=== PATIENT | female | born 1950 | race Caucasian/White ===

== ENCOUNTER → 2016-11-30 | Outpatient (CLI) | payer BC, MEDICARE | LOC: WI 13:03 | PROVIDERS: ATTEND Physician Assistant | DX: Z12.31 Encounter for screening mammogram for malignant neoplasm of breast (principal) | CPT/HCPCS: 77067; G0202 ==

== ENCOUNTER → 2017-05-01 | Outpatient (CLI) | payer BC, MEDICARE ==
--- NOTE | 2017-05-01 15:33 | RADIOLOGY REPORT (SQ) ---
EXAM DESCRIPTION: VENOUS UNILATERAL LOWER COMPLETED DATE/TIME: 05/01/2017 3:23 pm REASON FOR STUDY: LLE EDEMA R60.0 LOCALIZED EDEMA COMPARISON: None. TECHNIQUE: Dynamic and static edmondson scale and color images acquired of the left leg venous system. Se lected spectral images acquired with additional compression and augmentation maneuvers. The contralat eral common femoral vein and saphenofemoral junction were also imaged. Images stored on PACS. LIMITATIONS: None. FINDINGS: COMMON FEMORAL: Normal phasicity, compression and augmentation. No visualized echogenic ma terial on edmondson scale. No defects on color images. FEMORAL: Normal compression and augmentation. No visualized echogenic material on edmondson scale. No defe cts on color images. POPLITEAL: Normal compression, augmentation. No visualized echogenic material on edmondson scale. No defec ts on color images. CALF VESSELS: Normal compression, augmentation. No visualized echogenic material on edmondson scale. No de fects on color images. GSV and SSV: Normal compression, augmentation. No visualized echogenic material on edmondson scale. No def ects on color images. ANY DEEP VENOUS INSUFFICIENCY: Not evaluated. ANY EVIDENCE OF POPLITEAL CYST: No. OTHER: No other significant finding. CONTRALATERAL COMMON FEMORAL VEIN AND SAPHENOFEMORAL JUNCTION: Normal phasicity, compression and augmentation. No visualized echogenic material on edmondson scale. No de fects on color images. IMPRESSION: NO EVIDENCE OF DVT OR SVT IN THE LEFT LEG. TECHNICAL DOCUMENTATION: JOB ID: [id number] [employer]- All Rights Reserved
--- NOTE | 2017-05-01 16:07 | RADIOLOGY REPORT (SQ) ---
EXAM DESCRIPTION: KNEE LEFT 3 VIEWS COMPLETED DATE/TIME: 05/01/2017 3:44 pm REASON FOR STUDY: ACUTE PAIN OF LEFT KNEE R60.0 LOCALIZED EDEMA COMPARISON: None. NUMBER OF VIEWS: Three views. TECHNIQUE: AP, lateral, both oblique, and sunrise patella radiographic images acquired of the left k nee. LIMITATIONS: None. FINDINGS: MINERALIZATION: Normal. BONES: No acute fracture or dislocation. No worrisome bone lesions. JOINT: No effusion. SOFT TISSUES: No soft tissue swelling. No radio-opaque foreign body. OTHER: No other significant finding. IMPRESSION: NEGATIVE STUDY OF THE LEFT KNEE. NO RADIOGRAPHIC EVIDENCE OF ACUTE INJURY. TECHNICAL DOCUMENTATION: JOB ID: [id number] [employer]- All Rights Reserved
== END ==
LOC: SP 14:52
PROVIDERS: ATTEND Physician Assistant
DX: M25.562 Pain in left knee (principal); R60.0 Localized edema
CPT/HCPCS: 93971

== ENCOUNTER → 2017-12-14 | Outpatient (CLI) | payer MEDICARE ==
--- NOTE | 2017-12-14 11:27 | WOMENS IMAGING REPORT ---
EXAM DESCRIPTION: 3D SCREENING MAMMO BILAT COMPLETED DATE/TIME: 12/14/2017 10:43 am REASON FOR STUDY: ROUTINE SCREENING;Z12.31 Z12.31 ENCNTR SCREEN MAMMOGRAM FOR MALIGNANT NEOPLASM OF [place]LAN COMPARISON: 11/30/2016, 04/16/2015, and 02/11/2014. TECHNIQUE: Standard craniocaudal and mediolateral oblique views of each breast recorded using digita l acquisition and breast tomosynthesis. LIMITATIONS: None. FINDINGS: Findings present which are benign by mammographic criteria. No suspicious masses, calcifi cations or architectural distortion. Pertinent benign findings: Stable small nodules and calcifications. Read with the assistance of CAD. .[facility] - R2 Cenova Version 1.3 .[facility] - R2 Cenova Version 1.3 .[facility] - R2 Cenova Version 2.4 .[facility] - R2 Cenova Version 2.4 .[facility] - R2 [employer] Operations Analyst Version 9.2 Benign mammographic findings may include one or more of the following: Smooth masses, popcorn/rim/co arse calcifications, asymmetries, post-procedure changes, and lesions with long-standing stability. IMPRESSION: BENIGN MAMMOGRAPHIC FINDINGS. BIRADS 2 BREAST DENSITY: c. The breasts are heterogeneously dense, which may obscure small masses. BIRAD: 2 BENIGN FINDING(S) RECOMMENDATION: RECOMMENDATION: ROUTINE SCREENING COMMENT: The patient has been notified of the results by letter per SA requirements. Additional no tification policies are in place for contacting patient with suspicious or incomplete findings. Quality ID #225: The [employer] recommends an annual screening mammogram for women aged 40 years or over. This facility utilizes a reminder system to ensure that all patients receive reminder letters, and/or direct phone calls for appointments. This includes reminders for routine scr eening mammograms, diagnostic mammograms, or other Breast Imaging Interventions when appropriate. Th is patient will be placed in the appropriate reminder system. The [employer] (ACR) has developed recommendations for screening MRI of the breast s in certain patient populations, to be used in conjunction with mammography. Breast MRI surveillanc e may be appropriate for women with more than 20% lifetime risk of developing breast cancer as deter mined by genetic testing, significant family history of the disease, or history of mantle radiation f or Hodgkins Disease. ACR Practice Guidelines 2008. DBT Technology DBT is a type of tomographic mammography. With conventional mammography, overlapping breast tissue ma y make lesions difficult to detect, even with good compression. DBT uses an x-ray tube that rotates a round the breast, taking images at different angles. These images are then combined to create thin sl ices of the breast that the radiologist can view as a 3D reconstruction. The Inotrem unit can perform full-field digital mammograms (2D imaging); or DBT (3D imaging); or both, in a combination mode that quickly performs both the mammogram and the tomosynthesis scan while the breast is still compressed. PQRS 6045F: Fluoroscopic imaging is not utilized for breast tomosynthesis. TECHNICAL DOCUMENTATION: FINDING NUMBER: (1) ASSESSMENT: (1) JOB ID: [id number] [employer]- All Rights Reserved Reading location - IP/workstation name: [email or web address]
== END ==
LOC: WI 10:31
PROVIDERS: ATTEND Physician Assistant
DX: Z12.31 Encounter for screening mammogram for malignant neoplasm of breast (principal)
CPT/HCPCS: 77063; 77067

== ENCOUNTER 2018-01-08 08:54 | Day surgery (SDC) | payer MEDICARE ==
[~2018-01-08 08:54] MED LIST: PROPOFOL INJ 200 MG/20 ML VIAL IV ONE
[2018-01-08 10:40] VITALS: BP 134/60
--- NOTE | 2018-01-08 14:06 | Operative Report ---
Operative Report DATE OF SURGERY: 01/08/18 Operative Report: The risks, benefits and alternatives of the procedure including risks of bleeding, perforation requiring surgery I explained to the patient in detail and informed consent was obtained. Patient was taken back to the endoscopy suite and placed in the left, lateral decubital position. Timeout was called. Propofol medications administered. A rectal examination was done which did not reveal any masses, tenderness or fissures. An Olympus endoscope was inserted into the patient's rectum. The scope was then carefully advanced all the way to the cecum. The cecum was identified by the usual anatomical landmarks including the ileocecal valve as well as the appendiceal office. Photodocumentation was obtained. The scope was then sequentially pulled back via the various segments of the colon including the descending colon, hepatic flexure, transverse colon, splenic flexure, descending colon and finally into the rectosigmoid portions of the colon. Retroflexion maneuver was performed. PREOPERATIVE DIAGNOSIS: Personal history of polyps. POSTOPERATIVE DIAGNOSIS: Mild right-sided colon inflammation status post biopsy. Internal hemorrhoids. Diverticulosis OPERATION: Colonoscopy with biopsy SURGEON: DAYAMI LANG ANESTHESIA: LMAC TISSUE REMOVED OR ALTERED: As noted above. COMPLICATIONS: None. ESTIMATED BLOOD LOSS: None. INTRAOPERATIVE FINDINGS: As noted above. PROCEDURE: Patient tolerated procedure well. No immediate postprocedure complications are noted. Patient discharged in good condition. Discharge date 01/08/2018. Discharge diet: Regular. Discharge activity: Regular. 2-3 week follow-up to discuss findings. Patient is instructed to call the office or proceed to the emergency room should have any further problems or questions. We will wait on the pathology.
== END 2018-01-08 10:45 | disposition home or self-care (01) ==
LOC: END 08:54
PROVIDERS: ATTEND Internal Medicine Gastroenterology
DX: Z86.010 Personal history of colon polyps (principal); K52.9 Noninfective gastroenteritis and colitis, unspecified; K64.8 Other hemorrhoids; K57.30 Diverticulosis of large intestine without perforation or abscess without bleeding; I10 Essential (primary) hypertension; I70.90 Unspecified atherosclerosis; E78.5 Hyperlipidemia, unspecified; Z87.891 Personal history of nicotine dependence; Z79.82 Long term (current) use of aspirin; Z79.899 Other long term (current) drug therapy
CPT/HCPCS: 45380; 811; 88305; J2704

== ENCOUNTER → 2018-08-28 | Outpatient (CLI) | payer OTHER ==
[2018-08-28 15:27] LABS: ABSOLUTE BASOPHILS # (AUTO) 0.1 10^3/uL (0.0-0.2); ABSOLUTE EOSINOPHILS # (AUTO) 0.1 10^3/uL (0.0-0.6); ABSOLUTE LYMPHOCYTES (AUTO) 1.9 10^3/uL (0.5-4.7); ABSOLUTE MONOCYTES (AUTO) 0.8 10^3/uL (0.1-1.4); ABSOLUTE NEUT (AUTO) 6.2 10^3/uL (1.7-8.2); EOSINOPHILS % (AUTO) 1.2 % (0-6); HEMATOCRIT 36.7 % (36.0-47.0); HEMOGLOBIN 13.4 g/dL (12.0-15.5); MEAN CORPUSCULAR HEMOGLOBIN 31.4 pg (27.0-33.4); MEAN CORPUSCULAR HGB CONC 36.5 g/dL (32.0-36.0); MEAN CORPUSCULAR VOLUME 86 fl (80-97); MONOCYTES % (AUTO) 9.2 % (3-13); PLATELET COUNT 337 10^3/uL (150-450); RED BLOOD COUNT 4.27 10^6/uL (3.72-5.28); RED CELL DISTRIBUTION WIDTH 12.4 % (11.5-14.0); SEGMENTED NEUTROPHILS % (AUTO) 67.6 % (42-78); TOTAL CELLS COUNTED % (AUTO) 100 %; WHITE BLOOD COUNT 9.2 10^3/uL (4.0-10.5)
[2018-08-28 15:57] LABS: ALANINE AMINOTRANSFERASE 24 U/L (9-52); ALBUMIN 4.6 g/dL (3.5-5.0); ALKALINE PHOSPHATASE 75 U/L (38-126); ANION GAP 11 (5-19); ASPARTATE AMINO TRANSFERASE 25 U/L (14-36); BILIRUBIN,DIRECT 0.2 mg/dL (0.0-0.4); BILIRUBIN,TOTAL 0.5 mg/dL (0.2-1.3); BLOOD UREA NITROGEN 17 mg/dL (7-20); CALCIUM 9.6 mg/dL (8.4-10.2); CARBON DIOXIDE 26 mmol/L (22-30); CHLORIDE 89 mmol/L (98-107); GLUCOSE 101 mg/dL (75-110); POTASSIUM 4.1 mmol/L (3.6-5.0); SODIUM 126.4 mmol/L (137-145); TOTAL PROTEIN 7.1 g/dL (6.3-8.2)
== END ==
LOC: OD 14:58
PROVIDERS: ATTEND Physician Assistant
DX: I10 Essential (primary) hypertension (principal); Z11.2 Encounter for screening for other bacterial diseases
CPT/HCPCS: 36415; 80053; 85025; 87070

== ENCOUNTER → 2019-01-30 | Outpatient (CLI) | payer OTHER ==
--- NOTE | 2019-01-30 14:50 | RADIOLOGY REPORT (SQ) ---
EXAM DESCRIPTION: FOOT RIGHT COMPLETE COMPLETED DATE/TIME: 01/30/2019 2:29 pm REASON FOR STUDY: M79.671 PAIN IN RIGHT FOOT M79.671 PAIN IN RIGHT FOOT COMPARISON: None. NUMBER OF VIEWS: Three views. TECHNIQUE: AP, lateral and oblique radiographic images acquired of the right foot. LIMITATIONS: None. FINDINGS: MINERALIZATION: Normal. BONES: There is a small erosion in the head of the 1st metatarsal seen on the oblique view. JOINTS: No effusions. SOFT TISSUES: Soft tissue swelling near the head of the 1st metatarsal. Soft tissue swelling on the dorsum of the foot. OTHER: No other significant finding. IMPRESSION: Small marginal erosion in the head of the 1st metatarsal. Soft tissue swelling. TECHNICAL DOCUMENTATION: JOB ID: [id number] [employer]- All Rights Reserved Reading location - IP/workstation name: [email or web address]
== END ==
LOC: RAD 13:39
PROVIDERS: ATTEND Physician Assistant
DX: M79.671 Pain in right foot (principal); M79.89 Other specified soft tissue disorders

== ENCOUNTER → 2019-05-28 | Outpatient (CLI) | payer OTHER ==
--- NOTE | 2019-05-28 14:48 | WOMENS IMAGING REPORT ---
EXAM DESCRIPTION: 3D SCREENING MAMMO BILAT COMPLETED DATE/TIME: 05/28/2019 2:05 pm REASON FOR STUDY: Z12.31 SCREENING MAMMO Z12.31 ENCNTR SCREEN MAMMOGRAM FOR MALIGNANT NEOPLASM OF B RE COMPARISON: Digital tomosynthesis bilateral screening mammogram dated 12/14/2017, and digital bilater al screening mammograms dated 11/30/2016, 04/16/2015, and 02/11/2014. EXAM PARAMETERS: Standard craniocaudal and mediolateral oblique views of each breast recorded using digital acquisition and breast tomosynthesis. Read with the assistance of CAD. .[facility] Shoes Content Strategist Version 9.2 LIMITATIONS: None. FINDINGS: Findings present which are benign by mammographic criteria. No suspicious masses, calcific ations or architectural distortion. Pertinent benign findings: Stable calcifications, vascular calcifications and nodules in the breast. Benign mammographic findings may include one or more of the following: Smooth masses, popcorn/rim/coa rse calcifications, asymmetries, post-procedure changes, and lesions with long-standing stability. IMPRESSION: BENIGN MAMMOGRAPHIC FINDINGS. BIRADS 2 BREAST DENSITY: c. The breasts are heterogeneously dense, which may obscure small masses. BIRAD: ASSESSMENT: 2 BENIGN FINDING(S) RECOMMENDATION: 1. ROUTINE SCREENING COMMENT: The patient has been notified of the results by letter per MQSA requirements. Additional no tification policies are in place for contacting patient with suspicious or incomplete findings. Quality ID #225: The [employer] [employer] recommends an annual screening mammogram for women aged 40 years or over. This facility utilizes a reminder system to ensure that all patients receive reminder letters, and/or direct phone calls for appointments. This includes reminders for routine scr eening mammograms, diagnostic mammograms, or other Breast Imaging Interventions when appropriate. Th is patient will be placed in the appropriate reminder system. TECHNICAL DOCUMENTATION: FINDING NUMBER: (1) ASSESSMENT: (1) JOB ID: [id number] [employer]- All Rights Reserved Reading location - IP/workstation name: [email or web address]
== END ==
LOC: WI 13:45
PROVIDERS: ATTEND Physician Assistant
DX: Z12.31 Encounter for screening mammogram for malignant neoplasm of breast (principal)
CPT/HCPCS: 77063; 77067

== ENCOUNTER → 2019-11-06 | Outpatient (CLI) | payer BC, OTHER ==
--- NOTE | 2019-11-06 15:13 | RADIOLOGY REPORT (SQ) ---
EXAM DESCRIPTION: ARTERIAL LOWER EXTREM BILAT COMPLETED DATE/TIME: 11/06/2019 2:58 pm REASON FOR STUDY: PVD I73.9 PERIPHERAL VASCULAR DISEASE, UNSPECIFIED COMPARISON: None. TECHNIQUE: Dynamic and static edmondson scale and color images acquired of the lower extremity arteries. Additional selected spectral images recorded. ABIs recorded. LIMITATIONS: None. FINDINGS: RIGHT LEG: ABIS: 0.92 -0.93 INFLOW ARTERIES: Patent left to right fem-fem bypass graft. Triphasic inflow. FEMORAL ARTERIES:Retrograde flow noted within the proximal common femoral artery. Profunda is patent with multiphasic waveform. SFA demonstrates multiphasic waveform without focal high-grade stenosis. . POPLITEAL ARTERY:Multiphasic waveforms. Normal, no velocity elevation to suggest focal stenosis. Norm al color Doppler evaluation. No aneurysm. PATENT TIBIOPERONEAL TRUNK AND 3 VESSEL RUNOFF: Multiphasic flow noted within the posterior and anter ior tibial arteries. No focal stenosis. Peroneal artery not imaged. TBI: Not performed. OTHER: No other significant finding. LEFT LEG: ABIS: 0.96-0.99 INFLOW ARTERIES: Patent left to right fem-fem bypass graft. Multiphasic waveform. FEMORAL ARTERIES:Common femoral artery demonstrates multiphasic waveform. Profunda is patent with mu ltiphasic flow. SFA demonstrates multiphasic flow without high-grade stenosis.. POPLITEAL ARTERY:Multiphasic waveforms. Normal, no velocity elevation to suggest focal stenosis. Norm al color Doppler evaluation. No aneurysm. PATENT TIBIOPERONEAL TRUNK AND 3 VESSEL RUNOFF: Multiphasic flow noted within the posterior and anter ior tibial arteries. No focal stenosis. Peroneal artery not imaged. TBI: Not performed. OTHER: No other significant finding. IMPRESSION: 1. Patent left to right fem-fem bypass graft. 2. Multiphasic waveform bilaterally without focal high-grade stenosis. 3. Normal left lower extremity ABIs. Right lower extremity ABIs 0.92- 0.93 compatible with mild isc hemia. COMMENT: OM NORMAL: Greater than 1.0 MINIMAL DISEASE: 0.9 to 1.0 CLAUDICATION: 0.5 to 0.9 SEVERE ARTERIAL DISEASE: Less than 0.5 [facility] NORMAL: Greater than 1.0 (1.2 If Heavy Calcifications) NORMAL TO MILD ISCHEMIA: 0.8 to 1.0 MODERATE ISCHEMIA: 0.4 to 0.8 SEVERE ISCHEMIA: Less than 0.4 TECHNICAL DOCUMENTATION: JOB ID: [id number] 2010 [employer]- All Rights Reserved Reading location - IP/workstation name: [email or web address]
--- NOTE | 2019-11-06 15:23 | RADIOLOGY REPORT (SQ) ---
EXAM DESCRIPTION: PHYSIO ARTERIAL LTD COMPLETE DATE/TIME: 11/06/2019 2:58 pm REASON FOR STUDY: PVD I73.9 PERIPHERAL VASCULAR DISEASE, UNSPECIFIED FINDINGS: Please see combined report for interpretation. IMPRESSION: Please see combined report for interpretation. Reading location - IP/workstation name: [email or web address]
== END ==
LOC: SP 12:39
PROVIDERS: ATTEND Podiatrist Foot Surgery
DX: I73.9 Peripheral vascular disease, unspecified (principal)
CPT/HCPCS: 93922; 93925

== ENCOUNTER → 2020-02-13 | Outpatient (CLI) | payer OTHER ==
--- NOTE | 2020-02-13 12:54 | RADIOLOGY REPORT (SQ) ---
EXAM DESCRIPTION: CAROTID DOPPLER IMAGES COMPLETED DATE/TIME: 02/13/2020 11:20 am REASON FOR STUDY: BRUIT R09.89 OTH SYMPTOMS AND SIGNS INVOLVING THE CIRC AND RESP SY COMPARISON: None. TECHNIQUE: Grayscale ultrasound, Doppler velocity and spectra, and color Doppler images acquired of the extra-cranial carotid and vertebral arteries. Images stored on PACS. LIMITATIONS: None. FINDINGS: RIGHT CAROTID CCA Velocities: Within normal limits. ICA Velocities Peak systolic 81 cm/s. End diastolic 20 cm/s. Proximal ICA/CCA peak systolic ratio 0.83. There is some soft plaque. The vessels are tortuous. LEFT CAROTID CCA Velocities: Within normal limits. ICA Velocities Peak systolic 92 cm/s. End diastolic 21 cm/s. Proximal ICA/CCA peak systolic ratio 1. There is some soft plaque. The vessels are tortuous. VERTEBRAL ARTERIES: Antegrade flow. Normal waveforms. SUBCLAVIAN ARTERIES: No finding. OTHER: No other significant finding. IMPRESSION: NO HEMODYNAMICALLY SIGNIFICANT STENOSIS. COMMENT: Quality ID #195: Velocity criteria are extrapolated from the diameter data as defined by t he Society of Radiologists in Ultrasound Consensus Conference. Radiology 2003: 229; 340-346. TECHNICAL DOCUMENTATION: JOB ID: [id number] 2010 [employer]- All Rights Reserved Reading location - IP/workstation name: [email or web address]
== END ==
LOC: SP 08:36
PROVIDERS: ATTEND Physician Assistant
DX: R09.89 Other specified symptoms and signs involving the circulatory and respiratory systems (principal)
CPT/HCPCS: 93880

== ENCOUNTER 2020-05-20 06:29 | Day surgery (SDC) | payer OTHER ==
[~2020-05-20 06:29] MED LIST changes: +CEFAZOLIN SODIUM 1 GM in DEXTROSE 5%-WATER 50 ML IV SCH; +LACTATED RINGERS 1000 ML IV PRN; +LIDOCAINE 0.5% INJ-PF (5 MG/ML) 50 ML SDV SUBCUT PRN; -PROPOFOL INJ 200 MG/20 ML VIAL IV ONE
[2020-05-20] MEDS ORDERED: MIDAZOLAM 2 MG/2 ML INJ ONE (06:39)
[2020-05-20] MEDS ORDERED: LIDOCAINE 2% INJ (20 MG/ML) 20 ML MDV ONE (06:39)
[2020-05-20] MEDS ORDERED: PROPOFOL INJ 200 MG/20 ML VIAL IV ONE ×2 (06:39→09:48)
[2020-05-20] MEDS ORDERED: MORPHINE SULFATE 10 MG/ML INJ ONE (06:39)
[2020-05-20] MEDS ORDERED: BUPIVACAINE HCL 0.5 % INJ/PF 30 ML SDV ONE (06:39)
[2020-05-20] MEDS ORDERED: BUPIVACAINE INJ/PF LIPOSOME/PF 266 MG/20 ML SDV ONE (07:13)
[2020-05-20] MEDS ORDERED: CEFAZOLIN 1 GM/D5W RTU 1 GM/50 ML RTUPB IV SCH (08:00)
[2020-05-20] MEDS: BACITRACIN INJ 50,000 UNIT VIAL ONE ×2 (08:27→08:30)
[2020-05-20] MEDS: NORMAL SALINE INJ/PF 0.9% 10 ML SDV ONE ×2 (08:28→08:30)
[2020-05-20] MEDS: POLYMYXIN B SULFATE INJ 500000 UNIT VIAL ONE ×2 (08:28→08:30)
--- NOTE | 2020-05-20 10:11 | Operative Report ---
Operative Report DATE OF SURGERY: 05/20/20 PREOPERATIVE DIAGNOSIS: Metatarsalgia second and third metatarsals left foot POSTOPERATIVE DIAGNOSIS: Same OPERATION: 1. Shortening metatarsal osteotomy with internal screw fixation second metatarsal left foot. 2. Shortening metatarsal osteotomy with internal screw fixation third metatarsal left foot. SURGEON: DYLLAN BINGHAM CORRECTIVE THERAPY AIDE TEACHER: BAM HENRIQUEZ ANESTHESIA: LMAC TISSUE REMOVED OR ALTERED: Bone, not sent for pathology. COMPLICATIONS: None. ESTIMATED BLOOD LOSS: Less than 0.1 mL INTRAOPERATIVE FINDINGS: Contracted extensor digitorum longus tendons second and third left foot. PROCEDURE: Following induction of IV regional local anesthesia the left foot and leg were prepped and draped in the usual sterile manner. A pneumatic tourniquet was placed around the left ankle and inflated to 250 mmHg after exsanguination of the limb via Esmarch bandage. The following surgical procedures were then performed: 1. Shortening metatarsal osteotomy with internal screw fixation second metatarsal left foot. Attention was directed to the dorsal aspect of the second metatarsal phalangeal joint where an approximately 3 cm dorsal linear incision was made medial to the head of the second metatarsal. The incision was deepened via sharp dissection all bleeders were clamped and bovied as necessary for the purposes of hemostasis. The extensor digitorum longus tendon was identified and retracted laterally. A capsule incision was made in the same manner as the original skin incision and the tissue was reflected medially and lateral from the metatarsal. Utilizing a [facility] sagittal saw a shortening metatarsal osteotomy was performed at the proximal aspect of the head of the metatarsal. The osteotomy was directed from dorsal distal to plantar proximal which then allowed the metatarsal to drop down into a more anatomically correct position. An x-ray was taken to make sure that the second metatarsal phalangeal joint was now in a more anatomically correct position and it was. The osteotomy was then fixated utilizing a 12 mm by 2.0 mm quick fix screw. Another x-ray was taken to ensure that the metatarsal phalangeal joint remained in the correct position. The redundant bone at the dorsal aspect of the second metatarsal head was removed utilizing a rongeur. The area was then flushed with copious amounts of antibacterial saline solution. Capsule was then coaptated and maintained utilizing simple interrupted sutures of 3-0 Vicryl. A Z-plasty lengthening of the extensor digitorum longus tendon was performed and it was sutured utilizing 3-0 FiberWire. The subcutaneous tissue was then coapted and maintained utilizing simple interrupted sutures of 4-0 Vicryl. The skin was coaptated and maintained utilizing horizontal mattress sutures of 5-0 nylon. 2. Shortening metatarsal osteotomy with internal screw fixation third metatarsal left foot. The exact same procedure that was performed on the second metatarsal of the left foot was then performed on the third metatarsal of the left foot. An x-ray was taken and it was noted that both the second metatarsal phalangeal joint and the third metatarsal phalangeal joint were in an anatomically correct position. A dry sterile dressing was then applied consisting of Mcnally silk, 4 x 4's, conform, Kerlix, and Coban. The pneumatic tourniquet was released it was noted that all digits are warm and viable and the patient was transferred to the rec overy room.
--- NOTE | 2020-05-20 10:17 | PDOC DISCHARGE SUMMARY ---
Discharge Summary-[facility], [place] Discharge Summary: Date of admission: May 20, 2020. Date of discharge: May 20, 2020. Surgical procedures: 1. Shortening metatarsal osteotomy with internal screw fixation second metatarsal left foot. 2. Shortening metatarsal osteotomy with internal screw fixation third metatarsal left foot. Postoperative diagnosis: Metatarsalgia second and third metatarsals left foot. Surgeon: Tonya Van D.P.M. Costing Analyst: Paresh Casarez D.P.M. Patient was admitted to [facility] with a chief complaint of her second and third toes shifting medially and she was unable to wear shoes with out being in pain. X-rays taken in the office showed that the second and third digits were dislocated medially at the metatarsal phalangeal joints and that the second and third metatarsals were elongated. The above surgical procedures were discussed with the patient and she agreed to the proposed surgery. Patient underwent the above surgical procedures without any complications and was transferred to the recovery room. She was discharged with an ice pack, postoperative instructions, and a postop shoe. She was given a postop appointment for May 26 at 2:30 PM. Patient was then discharged from surgical care.
--- NOTE | 2020-05-20 13:10 | RADIOLOGY REPORT (SQ) ---
EXAM DESCRIPTION: NO CHG FLUORO; FOOT LEFT 2 VIEWS IMAGES COMPLETED DATE/TIME: 05/20/2020 12:57 pm REASON FOR STUDY: SHORTENING OF METATARSALS WITH FIXATION, ARTHROPLASTY OF 2ND AND 3RD DIGIT COMPARISON: None. FLUOROSCOPY TIME: 9 seconds 1 Images saved to PACS LIMITATIONS: None. PROCEDURE: Shortening mm metatarsals with fixation, arthroplasty of the 2nd and 3rd digits. FINDINGS: Image from fluoro documents the procedure. IMPRESSION: Shortening of metatarsals, arthroplasty of 2nd and 3rd digits. Refer to operative note for further information. COMMENT: PQRS 6045F: Fluoroscopy time of the procedure is documented in the report. TECHNICAL DOCUMENTATION: JOB ID: [id number] 2010 [employer]- All Rights Reserved Reading location - IP/workstation name: [email or web address]
--- NOTE | 2020-05-20 13:10 | RADIOLOGY REPORT (SQ) ---
EXAM DESCRIPTION: NO CHG FLUORO; FOOT LEFT 2 VIEWS IMAGES COMPLETED DATE/TIME: 05/20/2020 12:57 pm REASON FOR STUDY: SHORTENING OF METATARSALS WITH FIXATION, ARTHROPLASTY OF 2ND AND 3RD DIGIT COMPARISON: None. FLUOROSCOPY TIME: 9 seconds 1 Images saved to PACS LIMITATIONS: None. PROCEDURE: Shortening mm metatarsals with fixation, arthroplasty of the 2nd and 3rd digits. FINDINGS: Image from fluoro documents the procedure. IMPRESSION: Shortening of metatarsals, arthroplasty of 2nd and 3rd digits. Refer to operative note for further information. COMMENT: PQRS 6045F: Fluoroscopy time of the procedure is documented in the report. TECHNICAL DOCUMENTATION: JOB ID: [id number] 2010 [employer]- All Rights Reserved Reading location - IP/workstation name: [email or web address]
== END 2020-05-20 10:25 | disposition home or self-care (01) ==
LOC: SC 06:29
PROVIDERS: ATTEND Podiatrist Foot Surgery
DX: M77.42 Metatarsalgia, left foot (principal); M20.42 Other hammer toe(s) (acquired), left foot; I10 Essential (primary) hypertension; E78.5 Hyperlipidemia, unspecified; G47.33 Obstructive sleep apnea (adult) (pediatric); Z79.899 Other long term (current) drug therapy; Z03.818 Encounter for observation for suspected exposure to other biological agents ruled out
CPT/HCPCS: 73620; 01480; 28308 ×2; L3260; C1713; U0003; J2250; J3490 ×5; J0690; J2270; J2704; C9803; 87635; C9290